=== PATIENT | male | born 1965 | race Hispanic/Latino ===

== ENCOUNTER 2020-09-03 06:51 | Observation (INO) | payer MEDICARE ==
--- NOTE | 2020-09-03 07:24 | Emergency Department Report ---
ED Neuro Deficit HPI - General Chief Complaint: Neuro Symptoms/Deficit Stated Complaint: R SIDE WEAKNESS Time Seen by Provider: 09/03/20 07:00 Source: patient, EMS Mode of arrival: Stretcher Limitations: Physical Limitation - History of Present Illness Initial Comments: [facility] Tele[facility]urology [facility] Date of Service: 09/03/2020 06:52:40 Impression: G44.201 - Headache (if no chronic) I69.4 - Sequelae of stroke, not specified as haemorrhage or infarction Comments/Sign-Out: The patient has no acute neurologic deficits. He claims the weakness in his leg and sensory loss on the right side were present before. Curiously for someone who is had five strokes there is nothing to show for it on his noncontrast head CT. He also thinks he's having seizures noting that he was jerking all over earlier. I saw none of this and he has no alteration of his sensorium. He needs MRI the brain, MRA of the head and neck, EKG monitoring, echocardiogram, rehab services evaluation, and symptomatic treatment of his headache. Metrics: Last Known Well: 09/03/2020 01:00:00 [employer] Notification Time: 09/03/2020 06:52:03 Arrival Time: 09/03/2020 06:53:00 Stamp Time: 09/03/2020 06:52:40 Time First Login Attempt: 09/03/2020 06:54:00 Video Start Time: 09/03/2020 06:54:00 Symptoms: headache and right eye pain NIHSS Start Assessment Time: 09/03/2020 07:09:43 Patient is not a candidate for Alteplase/Activase. Patient was not deemed candidate for Alteplase/Activase thrombolytics because of Last Well Known Above 4.5 Hours. Video End Time: 09/03/2020 07:17:34 CT head showed no acute hemorrhage or acute core infarct. CT head was reviewed and results were: no evidence of acute ischemic change, hemorrhage, mass lesion. No orbital or sinus findings. Clinical Presentation is not Suggestive of Large Vessel Occlusive Disease Radiologist was not called back for review of advanced imaging because Not indicated ED Physician notified of diagnostic impression and management plan on 09/03/2020 07:16:00 Our recommendations are outlined below. Recommendations: Activate Stroke Protocol Admission/Order Set Stroke/Telemetry Floor Neuro Checks Bedside Swallow Eval DVT Prophylaxis IV Fluids, Normal Saline Head of Bed 30 Degrees Euglycemia and Avoid Hyperthermia (PRN Acetaminophen) Initiate Aspirin 81 MG Daily Routine Consultation with Inhouse Neurology for Follow up Care Sign Out: Discussed with Emergency Department Provider History of Present Illness: Patient is a 55 year old Male. Patient was brought by EMS for symptoms of headache and right eye pain This 55 year old man had recent admission elsewhere for mental health evaluation, still under admission there. Last seen normal at 0100 and found about 0600 complaining of headache and right eye pain. Prior 5 strokes, old right side weakness. Last seen normal was beyond 4.5 hours of presentation. There is no history of Recent Anticoagulants. Past Medical History: Hypertension Diabetes Mellitus Hyperlipidemia There is NO history of Atrial Fibrillation There is NO history of Coronary Artery Disease Anticoagulant use: No Antiplatelet use: plavix Examination: BP(112/63), Pulse(100), Blood Glucose(93) 1A: Level of Consciousness - Alert; keenly responsive + 0 1B: Ask Month and Age - Both Questions Right + 0 1C: Blink Eyes & Squeeze Hands - Performs Both Tasks + 0 2: Test Horizontal Extraocular Movements - Normal + 0 3: Test Visual Rubin - No Visual Loss + 0 4: Test Facial Palsy (Use Grimace if Obtunded) - Normal symmetry + 0 5A: Test Left Arm Motor Drift - No Drift for 10 Seconds + 0 5B: Test Right Arm Motor Drift - No Drift for 10 Seconds + 0 6A: Test Left Leg Motor Drift - No Drift for 5 Seconds + 0 6B: Test Right Leg Motor Drift - Drift, but doesn't hit bed + 1 7: Test Limb Ataxia (FNF/Heel-Jeffers) - No Ataxia + 0 8: Test Sensation - Mild-Moderate Loss: Less Sharp/More Dull + 1 9: Test Language/Aphasia - Normal; No aphasia + 0 10: Test Dysarthria - Normal + 0 11: Test Extinction/Inattention - No abnormality + 0 NIHSS Score: 2 Patient/Family was informed the Neurology Consult would happen via TeleHealth consult by way of interactive audio and video telecommunications and consented to receiving care in this manner. Due to the immediate potential for life-threatening deterioration due to underlying acute neurologic illness, I spent 28 minutes providing critical care. This time includes time for face to face visit via telemedicine, review of medical records, imaging studies and discussion of findings with providers, the patient and/or family. Dr Rick Dykes [employer] Case [id number] Last Observed Normal: 01:00 Presenting Symptoms: Present: Weak/Paralyzed One Side, Sudden, Severe Headache, Blurred/Loss of Vision, Facial Droop/Numbness History of same: Yes - Related Data Allergies/Adverse Reactions: Allergies Allergy/AdvReac Type Severity Reaction Status Date / Time Unable to Assess Allergy Unverified 09/03/20 06:58 ED Review of Systems ROS: Stated complaint: R SIDE WEAKNESS Other details as noted in HPI ED Past Medical Hx - Past Medical History Previous Medical History?: Yes Hx Hypertension: Yes Hx CVA: Yes (x5) Hx Diabetes: Yes Hx Seizures: Yes Additional medical history: high cholestrol - Surgical History Past Surgical History?: No ED Neuro Physical Exam - General Limitations: Physical Limitation Suspected Stroke: No Critical care attestation.: If time is entered above; I have spent that time in minutes in the direct care of this critically ill patient, excluding procedure time. ED Disposition Clinical Impression: Headache Disposition: OP ADMIT IP TO THIS HOSP Is pt being admited?: Yes Condition: Stable
[2020-09-03 07:27] LABS: Basophils % (Auto) 0.5 % (0.0-1.8); Eosinophils # (Auto) 0.2 K/mm3 (0.0-0.4); Eosinophils % (Auto) 3.7 % (0.0-4.3); Hemoglobin 16.1 gm/dl (11.8-15.2); Lymphocytes # (Auto) 0.8 K/mm3 (1.2-5.4); Lymphocytes % (Auto) 13.6 % (13.4-35.0); Mean Corpuscular HGB Conc 34 % (32-34); Mean Corpuscular Volume 87 fl (84-94); Monocytes # (Auto) 0.5 K/mm3 (0.0-0.8); Monocytes % (Auto) 8.7 % (0.0-7.3); Platelet Count 170 K/mm3 (140-440); Red Blood Count 5.41 M/mm3 (3.65-5.03); Red Cell Distribution Width 14.5 % (13.2-15.2)
--- NOTE | 2020-09-03 07:39 | Cat Scan Report ---
Examination: CT of the head without contrast Clinical information: Stroke symptoms Comparison: None Technical: Multiple axial CT images of the head were obtained without intravenous contrast. Sagittal and coronal reformats were obtained. All CTs at this facility utilize dose reduction techniques inc luding automated exposure control, iterative reconstruction and weight based dosing when appropriate to reduce patient radiation dose to as low as reasonable achievable. Findings: INTRACRANIAL CONTENTS: There is no CT evidence of acute intracranial hemorrhage or large territorial infarct. The ventricular system is normal in size. No extra-axial fluid collection is identified. ORBITS: The bilateral orbits and globes appear normal SKULL: No significant abnormality. PARANASAL SINUSES / MASTOID AIR CELLS: There is moderate mucosal thickening of the paranasal sinuses. Impression: 1. No CT evidence of acute intracranial process. This study was designated as a code stroke protocol. Findings were personally communicated to Dr. Alexander alejandro in the Emergency Department at 6:34 AM Central time. Signer Name: Opal Kang MD Signed: 09/03/2020 7:34 AM Workstation Name: [id number]
[2020-09-03 07:44] LABS: INR 1.07 (0.87-1.13)
[2020-09-03 07:45] LABS: Partial Thromboplastin Time 30.3 Sec. (24.2-36.6)
[2020-09-03 07:50] LABS: Alanine Aminotransferase 16 units/L (7-56)
[2020-09-03 07:51] LABS: Bilirubin,Direct < 0.2 mg/dL (0-0.2)
[2020-09-03 08:12] LABS: BUN/Creatinine Ratio 13; Blood Urea Nitrogen 10 mg/dL (9-20); Calcium 9.2 mg/dL (8.4-10.2); Hemolysis Index 9
--- NOTE | 2020-09-03 08:14 | XRay Report ---
CHEST 1 VIEW INDICATION: neuro deficit. COMPARISON: None FINDINGS: Support devices: None. Heart: Within normal limits. Lungs/Pleura: No acute air space or interstitial disease. Additional findings: None. IMPRESSION: No acute findings. Signer Name: Alphonse Durant Jr, MD Signed: 09/03/2020 8:09 AM Workstation Name: [id number]
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
[2020-09-03] MEDS ORDERED: ASPIRIN 325 MG TAB PO ONE (09:54)
--- NOTE | 2020-09-03 11:12 | History and Physical Report ---
History of Present Illness Date of examination: 09/03/20 Chief complaint: Right-sided weakness. History of present illness: 55-year-old male who was an inpatient at [facility] presents through the emergency department with chief complaint of right-sided weakness. Patient reports that he awakened approximately 1 AM and noticed right-sided weakness. Patient reports he does have history of CVA x5 with residual right- sided weakness but reports symptoms were significantly worse this morning. Patient also describes what sounds like rigors but denies any fever. No cough or cold-like symptoms. The patient had no bowel or bladder incontinence and was awake during his episode of "shaking". Patient reports that he previously could raise his right hand above his head but currently is unable to do that maneuver. No chest pain or shortness of breath. No headache or visual disturbances. 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) Past Surgical History: No surgical history Social history: no significant social history Family history: no significant family history Medications and Allergies Allergies Allergy/AdvReac Type Severity Reaction Status Date / Time Unable to Assess Allergy Unverified 09/03/20 06:58 Review of Systems All systems: negative Exam - Constitutional Vitals: Temp Pulse Resp BP Pulse Ox 86 16 112/56 99 09/03/20 09:00 09/03/20 09:51 09/03/20 09:00 09/03/20 09:51 General appearance: Present: no acute distress, well-nourished - EENT Eyes: Present: PERRL ENT: hearing intact, clear oral mucosa - Neck Neck: Present: supple, normal ROM - Respiratory Respiratory effort: normal Respiratory: bilateral: CTA - Cardiovascular Heart Sounds: Present: S1 & S2. Absent: rub, click - Extremities Extremities: pulses symmetrical, No edema Peripheral Pulses: within normal limits - Abdominal General gastrointestinal: Present: soft, non-tender, non-distended, normal bowel sounds Male genitourinary: Present: normal - Integumentary Integumentary: Present: clear, warm, dry - Musculoskeletal Musculoskeletal: gait normal, strength equal bilaterally - Psychiatric Psychiatric: appropriate mood/affect, intact judgment & insight - Neurologic Neurologic: CNII-XII intact, moves all extremities HEART Score - HEART Score Troponin: Troponin T < 0.010 ng/mL (0.00-0.029) 09/03/20 07:15 Results - Labs CBC & Chem 7: 09/03/20 07:15 09/03/20 07:15 Labs: Laboratory Last Values WBC 5.7 K/mm3 (4.5-11.0) 09/03/20 07:15 RBC 5.41 M/mm3 (3.65-5.03) H 09/03/20 07:15 Hgb 16.1 gm/dl (11.8-15.2) H 09/03/20 07:15 Hct 47.0 % (35.5-45.6) H 09/03/20 07:15 MCV 87 fl (84-94) 09/03/20 07:15 MCH 30 pg (28-32) 09/03/20 07:15 MCHC 34 % (32-34) 09/03/20 07:15 RDW 14.5 % (13.2-15.2) 09/03/20 07:15 Plt Count 170 K/mm3 (140-440) 09/03/20 07:15 Lymph % (Auto) 13.6 % (13.4-35.0) 09/03/20 07:15 [place] % (Auto) 8.7 % (0.0-7.3) H 09/03/20 07:15 Eos % (Auto) 3.7 % (0.0-4.3) 09/03/20 07:15 Baso % (Auto) 0.5 % (0.0-1.8) 09/03/20 07:15 Lymph # (Auto) 0.8 K/mm3 (1.2-5.4) L 09/03/20 07:15 [place] # (Auto) 0.5 K/mm3 (0.0-0.8) 09/03/20 07:15 Eos # (Auto) 0.2 K/mm3 (0.0-0.4) 09/03/20 07:15 Baso # (Auto) 0.0 K/mm3 (0.0-0.1) 09/03/20 07:15 Seg Neutrophils % 73.5 % (40.0-70.0) H 09/03/20 07:15 Seg Neutrophils # 4.2 K/mm3 (1.8-7.7) 09/03/20 07:15 PT 13.8 Sec. (12.2-14.9) 09/03/20 07:15 INR 1.07 (0.87-1.13) 09/03/20 07:15 APTT 30.3 Sec. (24.2-36.6) 09/03/20 07:15 Thrombin Time 15.6 Sec. (15.1-19.6) 09/03/20 07:15 Sodium 135 mmol/L (137-145) L 09/03/20 07:15 Potassium 3.9 mmol/L (3.6-5.0) 09/03/20 07:15 Chloride 99.7 mmol/L (98-107) 09/03/20 07:15 Carbon Dioxide 24 mmol/L (22-30) 09/03/20 07:15 Anion Gap 15 mmol/L 09/03/20 07:15 BUN 10 mg/dL (9-20) 09/03/20 07:15 Creatinine 0.8 mg/dL (0.8-1.3) 09/03/20 07:15 Estimated GFR > 60 ml/min 09/03/20 07:15 BUN/Creatinine Ratio 13 % 09/03/20 07:15 Glucose 93 mg/dL (75-100) 09/03/20 07:15 POC Glucose 89 mg/dL (70-105) 09/03/20 09:17 Lactic Acid 0.80 mmol/L (0.7-2.0) 09/03/20 07:15 Calcium 9.2 mg/dL (8.4-10.2) 09/03/20 07:15 Magnesium 1.90 mg/dL (1.7-2.3) 09/03/20 07:15 Total Bilirubin 0.60 mg/dL (0.1-1.2) 09/03/20 07:15 Direct Bilirubin < 0.2 mg/dL (0-0.2) 09/03/20 07:15 Indirect Bilirubin 0.4 mg/dL 09/03/20 07:15 AST 20 units/L (5-40) 09/03/20 07:15 ALT 16 units/L (7-56) 09/03/20 07:15 Alkaline Phosphatase 60 units/L (35-129) 09/03/20 07:15 Troponin T < 0.010 ng/mL (0.00-0.029) 09/03/20 07:15 NT-Pro-B Natriuret Pep 39.67 pg/mL (0-900) 09/03/20 07:15 Total Protein 7.5 g/dL (6.3-8.2) 09/03/20 07:15 Albumin 4.0 g/dL (3.9-5) 09/03/20 07:15 Albumin/Globulin Ratio 1.1 % 09/03/20 07:15 Salicylates < 0.3 mg/dL (2.8-20.0) L 09/03/20 07:15 Acetaminophen 5.0 ug/mL (10.0-30.0) L 09/03/20 07:15 Rascon/IV: IV Catheter Type [Right Hand] INT / Saline Lock Assessment and Plan Assessment and plan: CVA. CT head showed no acute hemorrhage or acute infarct. No evidence of acute ischemic change, hemorrhage or mass-effect. Patient reports previously taking Plavix. Will resume aspirin, Plavix. Check MRI and echocardiogram for further evaluation. Neurology consultation. Hyperlipidemia. Patient will be started on statin. Hypertension. Resume home antihypertensive medications Diabetes mellitus type 2. Continue Accu-Cheks and sliding scale insulin.
[2020-09-03] MEDS ORDERED: ONDANSETRON 4 MG/2 ML INJ IV PRN ×2 (11:24)
[2020-09-03] MEDS ORDERED: PROMETHAZINE 25 MG RECT SUPP PR PRN (11:24)
[2020-09-03] MEDS ORDERED: MAGNESIUM HYDROXIDE (MOM) ORAL LIQD UDC PO PRN (11:24)
[2020-09-03] MEDS ORDERED: ACETAMINOPHEN 325 MG TAB PO PRN ×2 (11:24)
[2020-09-03] MEDS ORDERED: METOCLOPRAMIDE 10 MG TAB PO PRN (11:24)
[2020-09-03] MEDS ORDERED: DEXTROSE 50% IN WATER (25GM) 50 ML SYRINGE IV PRN (11:24)
--- NOTE | 2020-09-03 12:26 | Consultation ---
History of Present Illness Consult date: 09/03/20 Reason for Consult: CVA Chief complaint: Right-sided weakness History of present illness: 55 yo male with htn, dm, hld, hx of 5 CVAs (residual right-sided weakness) who presents c/o headache w/ right-sided weakness and a "shaking episode" w/o change or loss of consciousness. He was evaluated by teleneurology and deemed not a candidate for IV-tPA (LKNormal of 01:00 am and presented >4.5 hours). He notes right shoulder pain (hx of rotator cuff injury) and notes numbness of jaycee right face/arm/leg, along with the weakness. Notes he takes Plavix 75 mg at home and takes aspirin when he runs out of the Plavix. 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) Past Surgical History: No surgical history Social history: no significant social history Family history: no significant family history Medications and Allergies Allergies Allergy/AdvReac Type Severity Reaction Status Date / Time Unable to Assess Allergy Unverified 09/03/20 06:58 Active Meds: Active Medications Acetaminophen (Acetaminophen 325 Mg Tab) 650 mg PO Q4H PRN PRN Reason: Pain MILD(1-3)/Fever >100.5/MIRELES Acetaminophen (Acetaminophen 325 Mg Tab) 650 mg PO Q4H PRN PRN Reason: Pain, Mild (1-3) Atorvastatin Calcium (Atorvastatin 40 Mg Tab) 40 mg PO QHS CINTHIA Bisacodyl (Bisacodyl 10 Mg Rect Supp) 10 mg MD QDAY PRN PRN Reason: Constipation Dextrose (Dextrose 50% In Water (25gm) 50 Ml Syringe) 50 ml IV Q30MIN PRN; Protocol PRN Reason: Hypoglycemia Insulin Human Regular (Insulin Regular, Human 100 Unit/Ml 3ml Vial) 0 unit SUB- Q AC CINTHIA; Protocol Magnesium Hydroxide (Magnesium Hydroxide (Mom) Oral Liqd Udc) 30 ml PO Q4H PRN PRN Reason: Constipation Metoclopramide HCl (Metoclopramide 10 Mg Tab) 10 mg PO Q6H PRN PRN Reason: Nausea And Vomiting Ondansetron HCl (Ondansetron 4 Mg/2 Ml Inj) 4 mg IV Q8H PRN PRN Reason: Nausea And Vomiting Ondansetron HCl (Ondansetron 4 Mg/2 Ml Inj) 4 mg IV Q8H PRN PRN Reason: Nausea And Vomiting Promethazine HCl (Promethazine 25 Mg Rect Supp) 25 mg MD Q6H PRN PRN Reason: Nausea And Vomiting Sodium Chloride (Sodium Chloride 0.9% 10 Ml Flush Syringe) 10 ml IV BID CINTHIA Sodium Chloride (Sodium Chloride 0.9% 10 Ml Flush Syringe) 10 ml IV PRN PRN PRN Reason: LINE FLUSH Sodium Chloride (Sodium Chloride 0.9% 10 Ml Flush Syringe) 10 ml INJ PRN PRN PRN Reason: LINE FLUSH Review of Systems All systems: negative (except as per HPI;) Physical Examination - Vital Signs Vital Signs: Vital Signs Pulse Resp BP 88 19 104/50 09/03/20 08:00 09/03/20 08:00 09/03/20 08:00 - Additional Exam Additional Exam: Gen: nad, well-nourished; Head: normocephalic; Eyes: no gaze deviation; no ptosis; ENT: normal vocalization; CVS: warm and well-perfused; Pulm: no respiratory distress; GI: non-distended, protuberant; Ext: no cyanosis or edema at distal extremities; Skin: no acute rash or hives at distal extremities; Heme: no pathologic bruising or ecchymosis at distal extremities; Neuro: alert, oriented to name, age, month, surroundings, moderate dysarthria, no aphasia, CN 2 - PERRL, visual self intact, CN 3, 4, 6 - EOMI, CN 5 - facial sensation decreased to light touch, CN 7 - mild right facial droop, CN 8 - hearing grossly intact, CN 9, 10 - uvula midline, CN 11 - shrug decreased on right due to pain, CN 12 - tongue midline; Motor - at least 5-/5 at left exts and at least 4-/5 at distal right exts; Sensory - light touch decresaed at right arm/leg, Cerebellar - fnf /hts intact on left but difficulty on right secondary to weakness, Gait - deferred secondary to fall risk; NIHSS (1a.) Level of Consciousness:0 (1b.) LOC Questions:0 (1c.) LOC Commands:0 (2.) Best Gaze:0 (3.) Visual:0 (4.) Facial Palsy:1 (5a.) Motor Arm, Left:0 (5b.) Motor Arm, Right:2 (6a.) Motor Leg, Left:0 (6b.) Motor Leg, Right:1 (7.) Limb Ataxia:0 (8.) Sensory:2 (9.) Best Language:0 (10.) Dysarthria:1 (11.) Extinction and Inattention:0 NIHSS Total Score: 7 Results - Laboratory Findings CBC and BMP: 09/03/20 07:15 09/03/20 07:15 Abnormal Lab Findings: Abnormal Labs 09/03/20 09/03/20 09/03/20 07:15 07:15 07:15 RBC 5.41 H Hgb 16.1 H Hct 47.0 H [place] % (Auto) 8.7 H Lymph # (Auto) 0.8 L Seg Neutrophils % 73.5 H Sodium 135 L Salicylates < 0.3 L Acetaminophen 09/03/20 07:15 RBC Hgb Hct [place] % (Auto) Lymph # (Auto) Seg Neutrophils % Sodium Salicylates Acetaminophen 5.0 L Assessment and Plan 55 yo male with htn, dm, hld, hx of 5 CVAs (residual right-sided weakness) who presents c/o headache w/ right-sided weakness and a "shaking episode" w/o change or loss of consciousness. He was evaluated by teleneurology and deemed not a candidate for IV-tPA (LKNormal of 01:00 am and presented >4.5 hours). 1. Seizure - ordered EEG. 2. Acute Ischemic Stroke: ASA 325 mg PO qday, MRI Brain w/o contrast, TTEcho, CUS, check LDL/HgbA1C/TSH, telemetry, SBP goal 160-200 mmHg and DBP 80-100 mmHg for 48 hours. Statin therapy for a goal LDL of 70, when patient passes swallow evaluation. PT/OT/ST/Swallow evaluation. Long-term risk-factor modification, including a strict diet/exercise regimen for secondary stroke prophylaxis. 2. Hypertension - goal SBP 160-200 mmHg and DBP 80-100 mmHg for 48 hours. 3. Diabetes Mellitus - maintain euglycemia. 4. Hyperlipidemia - goal LDL of 70 w/ statin therapy if no contraindications. 5. Dysarthria / Dysphagia - st / swallow evaluation/monitoring. 6. Right-sided weakness - pt/ot evaluation/monitoring. 7. Right shoulder pain / right rotator cuff injury - per primary; consider orthopedic consult. Javon Salgado MD Neurology
[2020-09-03] MEDS: INSULIN REGULAR, HUMAN 100 UNIT/ML 3ML VIAL SUB-Q SCH ×2 (15:54→16:40)
--- NOTE | 2020-09-03 16:27 | Magnetic Resonance Report ---
MRI BRAIN WITHOUT CONTRAST INDICATION / CLINICAL INFORMATION: stroke. TECHNIQUE: Multiplanar, multisequence MR images of the brain were obtained. COMPARISON: None available. FINDINGS: BRAIN / INTRACRANIAL CONTENTS: No acute ischemia, acute hemorrhage, mass effect, midline shift, or hy drocephalus. No chronic infarct or significant atrophy. No significant demyelinating changes. CRANIOCERVICAL JUNCTION: No significant abnormality. VASCULAR FLOW-VOIDS: No significant abnormality. ORBITS: No significant abnormality of visualized orbits. SINUSES / MASTOIDS: There is moderate mucosal thickening throughout the paranasal sinuses. ADDITIONAL FINDINGS: None. IMPRESSION: 1. No evidence of acute infarct or other acute intracranial abnormality. Signer Name: Ish Boothe MD Signed: 09/03/2020 4:22 PM Workstation Name: [id number]
[2020-09-04 05:51] LABS: Basophils % (Auto) 0.5 % (0.0-1.8); Eosinophils # (Auto) 0.2 K/mm3 (0.0-0.4); Hematocrit 46.9 % (35.5-45.6); Hemoglobin 15.9 gm/dl (11.8-15.2); Lymphocytes # (Auto) 1.1 K/mm3 (1.2-5.4); Lymphocytes % (Auto) 25.9 % (13.4-35.0); Mean Corpuscular HGB Conc 34 % (32-34); Mean Corpuscular Volume 89 fl (84-94); Monocytes # (Auto) 0.6 K/mm3 (0.0-0.8); Monocytes % (Auto) 12.6 % (0.0-7.3); Platelet Count 147 K/mm3 (140-440); Red Cell Distribution Width 14.7 % (13.2-15.2)
[2020-09-04 06:12] LABS: Blood Urea Nitrogen 11 mg/dL (9-20); Calcium 9.3 mg/dL (8.4-10.2); Chol/HDL Ratio 2.77 %; HDL Cholesterol 31 mg/dL (40-59); Hemolysis Index 9; LDL Cholesterol,Direct 49 mg/dL (50-130)
[2020-09-04 06:22] LABS: BUN/Creatinine Ratio 16
[2020-09-04] MEDS: INSULIN REGULAR, HUMAN 100 UNIT/ML 3ML VIAL SUB-Q SCH ×2 (10:58→16:31)
[2020-09-04] MEDS ORDERED: ASPIRIN 325 MG TAB PO SCH (11:00)
[2020-09-04 12:53] LABS: Bilirubin,Urine NEG (Negative); Blood,Urine NEG (Negative); Color,Urine Yellow (Yellow); Protein,Urine <15 mg/dL mg/dL (Negative); WBC,Urine < 1.0 /HPF (0.0-6.0)
[2020-09-04 12:54] LABS: Amphetamine Screen,Urine Negative; Benzodiazepines Screen,Urine Negative; Cannabinoid Screen,Urine Negative; Cocaine Screen,Urine Negative; Methadone Screen,Urine Negative; Opiate Screen,Urine Negative
--- NOTE | 2020-09-04 15:17 | Progress Note ---
Assessment and Plan Assessment and plan: CVA. CT head showed no acute hemorrhage or acute infarct. No evidence of acute ischemic change, hemorrhage or mass-effect. Patient reports previously taking Plavix. Continue aspirin and plavix. MRI brain - no cva. Echo shows no intracardiac embolus/thrombus or shunt/PFO. EEG pending. Neurology recs appreciated Hyperlipidemia. Continue statins Hypertension. Continue antihypertensive medications. Diabetes mellitus type 2. Continue Accu-Cheks and sliding scale insulin. History Interval history: No acute events overnight Hospitalist Physical - Physical exam Narrative exam: VITAL SIGNS: Reviewed. GENERAL: Awake HEAD: No signs of head trauma. EYES: Pupils are equal. Extraocular motions intact. MOUTH: Oropharynx is normal. NECK: No adenopathy, no JVD. CHEST: Chest with diminished breath sounds bilaterally. No wheezes, rales, or rhonchi. CARDIAC: normal S1 and S2, without murmurs, gallops, or rubs. ABDOMEN: Soft, non tender and non distended. No rebound or guarding, and no masses palpated. Bowel Sounds normal. MUSCULOSKELETAL: No edema NEUROLOGIC EXAM: Alert and oriented x3. No focal neurologic deficits SKIN: No obvious lesions - Constitutional Vitals: Temp Pulse Resp BP Pulse Ox 98.0 F 84 18 104/69 97 09/04/20 11:42 09/04/20 11:42 09/04/20 12:00 09/04/20 11:42 09/04/20 12:00 HEART Score - HEART Score Troponin: Troponin T < 0.010 ng/mL (0.00-0.029) 09/03/20 07:15 Results - Labs CBC & Chem 7: 09/04/20 05:24 09/04/20 05:24 Labs: Laboratory Last Values WBC 4.4 K/mm3 (4.5-11.0) L 09/04/20 05:24 RBC 5.30 M/mm3 (3.65-5.03) H 09/04/20 05:24 Hgb 15.9 gm/dl (11.8-15.2) H 09/04/20 05:24 Hct 46.9 % (35.5-45.6) H 09/04/20 05:24 MCV 89 fl (84-94) 09/04/20 05:24 MCH 30 pg (28-32) 09/04/20 05:24 MCHC 34 % (32-34) 09/04/20 05:24 RDW 14.7 % (13.2-15.2) 09/04/20 05:24 Plt Count 147 K/mm3 (140-440) 09/04/20 05:24 Lymph % (Auto) 25.9 % (13.4-35.0) 09/04/20 05:24 [place] % (Auto) 12.6 % (0.0-7.3) H 09/04/20 05:24 Eos % (Auto) 4.0 % (0.0-4.3) 09/04/20 05:24 Baso % (Auto) 0.5 % (0.0-1.8) 09/04/20 05:24 Lymph # (Auto) 1.1 K/mm3 (1.2-5.4) L 09/04/20 05:24 [place] # (Auto) 0.6 K/mm3 (0.0-0.8) 09/04/20 05:24 Eos # (Auto) 0.2 K/mm3 (0.0-0.4) 09/04/20 05:24 Baso # (Auto) 0.0 K/mm3 (0.0-0.1) 09/04/20 05:24 Seg Neutrophils % 57.0 % (40.0-70.0) 09/04/20 05:24 Seg Neutrophils # 2.5 K/mm3 (1.8-7.7) 09/04/20 05:24 PT 13.8 Sec. (12.2-14.9) 09/03/20 07:15 INR 1.07 (0.87-1.13) 09/03/20 07:15 APTT 30.3 Sec. (24.2-36.6) 09/03/20 07:15 Thrombin Time 15.6 Sec. (15.1-19.6) 09/03/20 07:15 Sodium 136 mmol/L (137-145) L 09/04/20 05:24 Potassium 4.1 mmol/L (3.6-5.0) 09/04/20 05:24 Chloride 99.3 mmol/L (98-107) 09/04/20 05:24 Carbon Dioxide 28 mmol/L (22-30) 09/04/20 05:24 Anion Gap 13 mmol/L 09/04/20 05:24 BUN 11 mg/dL (9-20) 09/04/20 05:24 Creatinine 0.7 mg/dL (0.8-1.3) L 09/04/20 05:24 Estimated GFR > 60 ml/min 09/04/20 05:24 BUN/Creatinine Ratio 16 % 09/04/20 05:24 Glucose 74 mg/dL (75-100) L 09/04/20 05:24 POC Glucose 83 mg/dL (70-105) 09/04/20 11:43 Lactic Acid 0.80 mmol/L (0.7-2.0) 09/03/20 07:15 Calcium 9.3 mg/dL (8.4-10.2) 09/04/20 05:24 Magnesium 1.90 mg/dL (1.7-2.3) 09/03/20 07:15 Total Bilirubin 0.60 mg/dL (0.1-1.2) 09/03/20 07:15 Direct Bilirubin < 0.2 mg/dL (0-0.2) 09/03/20 07:15 Indirect Bilirubin 0.4 mg/dL 09/03/20 07:15 AST 20 units/L (5-40) 09/03/20 07:15 ALT 16 units/L (7-56) 09/03/20 07:15 Alkaline Phosphatase 60 units/L (35-129) 09/03/20 07:15 Troponin T < 0.010 ng/mL (0.00-0.029) 09/03/20 07:15 NT-Pro-B Natriuret Pep 39.67 pg/mL (0-900) 09/03/20 07:15 Total Protein 7.5 g/dL (6.3-8.2) 09/03/20 07:15 Albumin 4.0 g/dL (3.9-5) 09/03/20 07:15 Albumin/Globulin Ratio 1.1 % 09/03/20 07:15 Triglycerides 73 mg/dL (2-149) 09/04/20 05:24 Cholesterol 86 mg/dL (50-199) 09/04/20 05:24 LDL Cholesterol Direct 49 mg/dL (50-130) L 09/04/20 05:24 HDL Cholesterol 31 mg/dL (40-59) L 09/04/20 05:24 Cholesterol/HDL Ratio 2.77 % 09/04/20 05:24 Urine Color Yellow (Yellow) 09/04/20 Unknown Urine Turbidity Clear (Clear) 09/04/20 Unknown Urine pH 6.0 (5.0-7.0) 09/04/20 Unknown Ur Specific [place] 1.005 (1.003-1.030) 09/04/20 Unknown Urine Protein <15 mg/dl mg/dL (Negative) 09/04/20 Unknown Urine Glucose (UA) Neg mg/dL (Negative) 09/04/20 Unknown Urine Ketones 20 mg/dL (Negative) 09/04/20 Unknown Urine Blood Neg (Negative) 09/04/20 Unknown Urine Nitrite Neg (Negative) 09/04/20 Unknown Urine Bilirubin Neg (Negative) 09/04/20 Unknown Urine Urobilinogen 2.0 mg/dL (<2.0) 09/04/20 Unknown Ur Leukocyte Esterase Neg (Negative) 09/04/20 Unknown Urine WBC (Auto) < 1.0 /HPF (0.0-6.0) 09/04/20 Unknown Urine RBC (Auto) 1.0 /HPF (0.0-6.0) 09/04/20 Unknown U Epithel Cells (Auto) < 1.0 /HPF (0-13.0) 09/04/20 Unknown Salicylates < 0.3 mg/dL (2.8-20.0) L 09/03/20 07:15 Urine Opiates Screen Negative 09/04/20 Unknown Urine Methadone Screen Negative 09/04/20 Unknown Acetaminophen 5.0 ug/mL (10.0-30.0) L 09/03/20 07:15 Ur Barbiturates Screen Negative 09/04/20 Unknown Ur Phencyclidine Scrn Negative 09/04/20 Unknown Ur Amphetamines Screen Negative 09/04/20 Unknown U Benzodiazepines Scrn Negative 09/04/20 Unknown Urine Cocaine Screen Negative 09/04/20 Unknown U Marijuana (THC) Screen Negative 09/04/20 Unknown Drugs of Abuse Note Disclamer 09/04/20 Unknown - Diagnostic Impressions Diagnostic Impressions: Echocardiogram 09/03/20 11:28 Transthoracic Echocardiogram Indication: Stroke BP: 112/56 HR: 81 Conclusions *Global left ventricular wall motion and contractility are within normal limits. *The estimated ejection fraction is 50-55%. *Abnormal left ventricular diastolic filling is observed, consistent with impaired relaxation. *There is no pericardial effusion. *Normal bubble study without evidence of intracardiac or intrapulmonary communication. Findings Left Ventricle: The left ventricular chamber size is normal. There is no left ventricular hypertrophy. Global left ventricular wall motion and contractility are within normal limits. Global left ventricular systolic function is normal. The estimated ejection fraction is 50-55%. Abnormal left ventricular diastolic filling is observed, consistent with impaired relaxation. Left Atrium: The left atrial chamber size is normal. Right Ventricle: The right ventricular cavity size is normal. The right ventricular global systolic function is normal. Right Atrium: The right atrial cavity size is normal. Aortic Valve: Mild aortic leaflet calcification is visualized. There is no evidence of aortic regurgitation. Mitral Valve: The mitral valve leaflets do not appear thickened. There is trace of mitral regurgitation. Tricuspid Valve: The tricuspid valve leaflets are normal. There is trace tricuspid regurgitation. The right ventricular systolic pressure is calculated at 27 mmHg. Pulmonic Valve: There is no evidence of pulmonic valve thickening. There is trace pulmonic regurgitation. Pericardium: There is no pericardial effusion. Aorta: The aorta appears normal. Venous: The inferior vena cava appears normal in size. Contrast: Intravenous agitated saline contrast was used to assess intracardiac shunting. Measurements Chambers 2D Name Value Normal Range IVSd (2D) 0.8 cm (0.6 - 1.1) LVPWd (2D) 0.83 cm (0.6 - 1.1) LVIDd (2D) 4.04 cm (3.7 - 5.6) LVIDs (2D) 3.08 cm (2 - 3.8) LV FS (2D) 23.77 % - EF Teichholz (2D) 47.93 % - Ao root diameter (2D) 2.86 cm (2 - 3.7) Volumes/Mass Name Value Normal Range LA ESV SP 4CH (A/L) 45.59 ml - LA ESV SP 2CH (A/L) 55.12 ml - LA ESV BP (A/L) 50.18 ml - LA ESV BP (A/L) index 25.6 ml/m2 - LA ESV SP 4CH (MOD) 40.45 ml - LA ESV SP 2CH (MOD) 52.23 ml - LA ESV BP (MOD) 45.94 ml - LA ESV BP (MOD) index 23.44 ml/m2 - Diastolic/Systolic Function Name Value Normal Range MV E-wave Vmax 0.83 m/sec - MV deceleration time 225.16 msec - MV A-wave Vmax 0.76 m/sec - MV E:A ratio 1.09 ratio - Aortic Valve Name Value Normal Range AV Vmax 1.48 m/sec - AV VTI 27.41 cm - AV peak gradient 8.75 mmHg - AV mean gradient 5.1 mmHg - LVOT diameter 2.13 cm - LVOT Vmax 1.18 m/sec - LVOT VTI 23.72 cm - LVOT peak gradient 5.59 mmHg - LVOT mean gradient 2.61 mmHg - SV LVOT 84.53 ml - SHAWNA (continuity Vmax) 2.85 cm2 - SHAWNA (continuity VTI) 3.08 cm2 - Tricuspid Valve Name Value Normal Range TR Vmax 2.44 m/sec - TR peak gradient 24 mmHg - RAP 3 mmHg - RVSP 27 mmHg - IVC diameter 2.34 cm (1.2 - 2.3) Pulmonic Valve/Qp:Qs Name Value Normal Range PV Vmax 0.95 m/sec - PV peak gradient 3.59 mmHg - PV acceleration time 95.15 msec - Rascon/IV: Voiding Method Urinal IV Catheter Type [Right Hand] INT / Saline Lock Active Medications - Current Medications Current Medications: Generic Name Dose Route Start Last Admin Trade Name Freq PRN Reason Stop Dose Admin Acetaminophen 650 mg 09/03/20 11:24 09/04/20 11:47 Acetaminophen 325 Mg Tab PO 650 mg Q4H PRN Administration Pain MILD(1-3)/Fever >100.5/MIRELES Aspirin 325 mg 09/04/20 11:00 09/04/20 11:04 Aspirin 325 Mg Tab PO 325 mg QDAY CINTHIA Administration Atorvastatin Calcium 40 mg 09/03/20 22:00 09/03/20 22:39 Atorvastatin 40 Mg Tab PO 40 mg QHS CINTHIA Administration Bisacodyl 10 mg 09/03/20 11:24 Bisacodyl 10 Mg Rect Supp ME QDAY PRN Constipation Dextrose 50 ml 09/03/20 11:24 Dextrose 50% In Water (25gm) 50 Ml Syringe IV Q30MIN PRN Hypoglycemia Protocol Insulin Human Regular 0 unit 09/03/20 11:30 09/04/20 10:58 Insulin Regular, Human 100 Unit/Ml 3ml Vial SUB-Q Not Given AC [facility] Protocol Magnesium Hydroxide 30 ml 09/03/20 11:24 Magnesium Hydroxide (Mom) Oral Liqd Udc PO Q4H PRN Constipation Metoclopramide HCl 10 mg 09/03/20 11:24 Metoclopramide 10 Mg Tab PO Q6H PRN Nausea And Vomiting Ondansetron HCl 4 mg 09/03/20 11:24 Ondansetron 4 Mg/2 Ml Inj IV Q8H PRN Nausea And Vomiting Promethazine HCl 25 mg 09/03/20 11:24 Promethazine 25 Mg Rect Supp ME Q6H PRN Nausea And Vomiting Sodium Chloride 10 ml 09/03/20 22:00 09/04/20 11:04 Sodium Chloride 0.9% 10 Ml Flush Syringe IV 10 ml BID CINTHIA Administration Sodium Chloride 10 ml 09/03/20 11:24 Sodium Chloride 0.9% 10 Ml Flush Syringe IV PRN PRN LINE FLUSH
--- NOTE | 2020-09-04 15:20 | Progress Note ---
Subjective Date of service: 09/04/20 Interval history: The MRI Brain was reviewed - no evidence of new CVA - awaits EEG , continue current plan . Dr. Holt Objective - Vital Sign Vital Signs - 12hr 09/04/20 09/04/20 09/04/20 04:23 04:37 07:23 Temperature 97.8 F 97.8 F Pulse Rate 87 71 80 Respiratory 18 18 Rate Blood Pressure 103/63 116/59 O2 Sat by Pulse 95 97 Oximetry 09/04/20 09/04/20 11:42 12:00 Temperature 98.0 F Pulse Rate 84 Respiratory 20 18 Rate Blood Pressure 104/69 O2 Sat by Pulse 98 97 Oximetry - Laboratory Findings CBC and BMP: 09/04/20 05:24 09/04/20 05:24 Abnormal Lab Findings: Abnormal Labs 09/03/20 09/03/20 09/03/20 07:15 07:15 07:15 WBC RBC 5.41 H Hgb 16.1 H Hct 47.0 H [place] % (Auto) 8.7 H Lymph # (Auto) 0.8 L Seg Neutrophils % 73.5 H Sodium 135 L Creatinine Glucose LDL Cholesterol Direct HDL Cholesterol Salicylates < 0.3 L Acetaminophen 09/03/20 09/04/20 09/04/20 07:15 05:24 05:24 WBC 4.4 L RBC 5.30 H Hgb 15.9 H Hct 46.9 H [place] % (Auto) 12.6 H Lymph # (Auto) 1.1 L Seg Neutrophils % Sodium 136 L Creatinine 0.7 L Glucose 74 L LDL Cholesterol Direct 49 L HDL Cholesterol 31 L Salicylates Acetaminophen 5.0 L
[2020-09-04 16:18] VITALS: BP 115/71
--- NOTE | 2020-09-05 08:41 | Discharge Summary ---
Providers - Providers Date of Admission: 09/03/20 11:24 Date of discharge: 09/05/20 Attending physician: JAC GOMES 09/03/20 11:24 Consult to Physician [CONS] Routine Comment: Consulting Provider: SONIA SHORT Physician Instructions: Reason For Exam: CVA Occupational Therapy Evaluate and Treat [CONS] Routine Comment: Reason For Exam: Neuro deficits Physical Therapy Evaluation and Treat [CONS] Routine Comment: Reason For Exam: Neuro deficits Primary care physician: NON DESTRUCTIVE TESTING SCIENTIST Hospitalization Condition: Stable Hospital course: 55-year-old male who was an inpatient at [facility] presented through the emergency department with chief complaint of right-sided weakness. Patient reports that he awakened approximately 1 AM and noticed right-sided weakness. Patient reports he does have history of CVA x5 with residual right- sided weakness but reports symptoms were significantly worse on the morning of presentation. Patient also describes what sounds like rigors but denies any fever. No cough or cold-like symptoms. The patient had no bowel or bladder incontinence and was awake during his episode of "shaking". Patient reports that he previously could raise his right hand above his head but currently is unable to do that maneuver. No chest pain or shortness of breath. No headache or visual disturbances. In the ED, Code stroke was called and he had a CT head performed which showed no CVA. Teleneurology was consulted. He mentions he has not been taking his medications as he ran out. MRI brain showed no CVA. US doppler carotid was negative for significant stenosis. Echo showed no PFO. As per neurology, EEG will be needed to rule out out seizure episode. He was maintained on antiplatelets while in the hospital. On 09/04. Patient decided to leave [place] before all work up could be completed despite understanding the risks of leaving the hospital. Disposition: [id number] LEFT AGAINST MED ADVICE - Discharge Diagnoses (1) CVA (cerebral vascular accident) Status: Acute Core Measure Documentation - Palliative Care Palliative Care/ Comfort Measures: Not Applicable - Core Measures Any of the following diagnoses?: none Exam - Physical Exam Narrative exam: VITAL SIGNS: Reviewed. GENERAL: Awake HEAD: No signs of head trauma. EYES: Pupils are equal. Extraocular motions intact. MOUTH: Oropharynx is normal. NECK: No adenopathy, no JVD. CHEST: Chest with diminished breath sounds bilaterally. No wheezes, rales, or rhonchi. CARDIAC: normal S1 and S2, without murmurs, gallops, or rubs. ABDOMEN: Soft, non tender and non distended. No rebound or guarding, and no masses palpated. Bowel Sounds normal. MUSCULOSKELETAL: No edema NEUROLOGIC EXAM: Alert and oriented x3. No focal neurologic deficits SKIN: No obvious lesions - Constitutional Vitals: Temp Pulse Resp BP Pulse Ox 98.0 F 76 18 115/71 98 09/04/20 15:54 09/04/20 15:54 09/04/20 15:54 09/04/20 15:54 09/04/20 15:54 Plan Follow up with: PRIMARY CAREMD [Primary Care Provider] - 7 Days Forms: AMA Form
== END 2020-09-04 18:16 | disposition left against medical advice (07) ==
LOC: ED 06:51 → 4A 11:24
PROVIDERS: ADMIT Hospitalist; ATTEND Internal Medicine
DX: I63.9 Cerebral infarction, unspecified (principal); I10 Essential (primary) hypertension; E11.9 Type 2 diabetes mellitus without complications; E78.5 Hyperlipidemia, unspecified; F29 Unspecified psychosis not due to a substance or known physiological condition; R56.9 Unspecified convulsions; E78.00 Pure hypercholesterolemia, unspecified; T21.21XA Burn of second degree of chest wall, initial encounter; R29.707 NIHSS score 7; R47.1 Dysarthria and anarthria; M62.81 Muscle weakness (generalized); M25.511 Pain in right shoulder; Z79.82 Long term (current) use of aspirin; Z79.4 Long term (current) use of insulin; Z79.02 Long term (current) use of antithrombotics/antiplatelets; Z79.899 Other long term (current) drug therapy; T31.0 Burns involving less than 10% of body surface; W29.2XXA Contact with other powered household machinery, initial encounter; Y93.89 Activity, other specified; Y92.89 Other specified places as the place of occurrence of the external cause; Y99.8 Other external cause status
CPT/HCPCS: 36415; 70450; 70551; 71045; 80048; 80061; 80076; 80307; 81001; 82140; 82962; 83735; 83880; 84484; 85025; 85610; 85670; 85730; 93005; 93306; 95819; 97162; 97165; 99285; A9270; G0378; 80320; G0480